=== PATIENT | female | born 2000 | race Caucasian/White ===

== ENCOUNTER 2022-11-04 17:19 | Emergency (ER) | payer SELFPAY ==
[~2022-11-04] VITALS: Ht 167.6 cm; Wt 49.0 kg
[2022-11-04 17:21] VITALS: BP 131/79
[2022-11-04] MEDS ORDERED: LEVETIRACETAM 500MG PREMIX 100 ML IV ONE (17:45)
== END 2022-11-04 17:50 | disposition left against medical advice (07) ==
LOC: ER 17:19
DX: Z53.21 Procedure and treatment not carried out due to patient leaving prior to being seen by health care provider (principal)